=== PATIENT | male | born 1965 | race Hispanic/Latino ===

== ENCOUNTER 2020-12-02 11:33 | Emergency (ER) | payer OTHER | END 2020-12-02 13:41 | disposition home or self-care (01) | LOC: ERS 11:33 | DX: S80.11XA Contusion of right lower leg, initial encounter (principal); S20.219A Contusion of unspecified front wall of thorax, initial encounter; E11.9 Type 2 diabetes mellitus without complications; I10 Essential (primary) hypertension; Z79.84 Long term (current) use of oral hypoglycemic drugs; Z79.899 Other long term (current) drug therapy; V49.9XXA Car occupant (driver) (passenger) injured in unspecified traffic accident, initial encounter | CPT/HCPCS: 71045 ==